=== PATIENT | female | born 1990 | race Two or more races ===

== ENCOUNTER 2016-06-17 04:56 | Emergency (ER) | payer SELFPAY ==
[2016-06-17 05:12] VITALS: BP 114/77
--- NOTE | 2016-06-17 06:12 | EDM.PDOC ---
<Ancelmo Figueroa - Last Filed: 06/17/16 06:07> ED HPI GI/ABDOMINAL - General Chief Complaint: Abdominal Pain Stated Complaint: LOWER ABD ABD PAIN Time Seen by Provider: 06/17/16 05:20 Source: Reports: Patient, Family History Limitations: Reports: Language barrier (Speaks very little Latvian) - History of Present Illness INITIAL COMMENTS - FREE TEXT/NARRATIVE: 26-year-old female with lower abdominal pain for the past 12-24 hours. No fevers or chills. She feels pressure with urination. She has not had a menstrual cycle for up to 7 or 8 months. No previous surgical history. Location: other (Pain is mostly lower abdomen, suprapubic) Quality: Reports: ache, cramping Severity: moderate Associated Symptoms (-Female): Reports: other (Amenorrhea). Denies: chest pain, bloody stools, fever/chills, nausea/vomiting - Related Data Allergies/ADRs: Allergies Allergy/AdvReac Type Severity Reaction Status Date / Time No Known Allergies Allergy Verified 06/17/16 05:10 Home Meds: Home Meds NK [No Known Home Meds] 06/17/16 [History] Past Medical History [employer] TECH[employer]ICIAN History: Reports: Spontaneous Neurological History: Reports: Headaches, chronic - Past Surgical History Female Surgical History: Reports: Other (see below) Other Female Surgeries/Procedures: irregular cycles Other Neurological Surgeries/Procedures: biopsy on back Social & Family History - Tobacco Use Smoking Status *Q: Never Smoker Second Hand Smoke Exposure: No - Caffeine Use Caffeine Use: Reports: Coffee, Soda - Recreational Drug Use Recreational Drug Use: No ED ROS GENERAL - Review of Systems Review Of Systems: See Below Constitutional: Denies: fever, chills HEENT: Reports: No symptoms Respiratory: Denies: Shortness of Breath Cardiovascular: Denies: Chest pain GI/Abdominal: Reports: Abdominal pain : Reports: urgency, other (She has a pressure with urination) Skin: Reports: no symptoms Psychiatric: Reports: No symptoms ED EXAM, GI/ABD - Physical Exam Exam: See Below Exam Limited By: No limitations General Appearance: alert, no apparent distress ( appears uncomfortable) Respiratory/Chest: no respiratory distress, lungs clear Cardiovascular: regular rate, rhythm GI/Abdominal: soft, other (She reacts with tenderness with some mild guarding across the lower abdomen, especially in the suprapubic area) Neurological: alert Psychiatric: normal affect, normal mood Skin Exam: Warm, Dry Course - Vital Signs Last Recorded V/S: Last Vital Signs Temp 99.8 F 06/17/16 05:18 Pulse 88 06/17/16 05:18 Resp 18 06/17/16 05:18 BP 114/77 06/17/16 05:18 Pulse Ox 98 06/17/16 05:18 - Orders/Labs/Meds Orders: Active Orders 24 hr Category Date Time Status OB 1st Tri Sgl 1st Gest [US] Stat Exams 06/17/16 07:24 Taken Labs: Laboratory Tests 06/17/16 06/17/16 06/17/16 Range/Units 05:28 05:28 05:48 WBC 6.1 (4.5-11.0) K/uL RBC 4.25 (3.30-5.50) M/uL Hgb 12.0 (12.0-15.0) g/dL Hct 35.5 L (36.0-48.0) % MCV 84 (80-98) fL MCH 28 (27-31) pg MCHC 34 (32-36) % Plt Count 248 (150-400) K/uL Neut % (Auto) 58 (36-66) % Lymph % (Auto) 33 (24-44) % [place] % (Auto) 8 H (2-6) % Eos % (Auto) 1 L (2-4) % Baso % (Auto) 1 (0-1) % Sodium (140-148) mmol/L Potassium (3.6-5.2) mmol/L Chloride (100-108) mmol/L Carbon Dioxide (21-32) mmol/L Anion Gap (5.0-14.0) mmol/L BUN (7-18) mg/dL Creatinine (0.6-1.0) mg/dL Est Cr Clr Drug Dosing mL/min Estimated GFR (MDRD) (>60) Glucose (74-106) mg/dL Calcium (8.5-10.1) mg/dL Total Bilirubin (0.2-1.0) mg/dL AST (15-37) U/L ALT (12-78) U/L Alkaline Phosphatase (46-116) U/L Total Protein (6.4-8.2) g/dL Albumin (3.4-5.0) g/dL Globulin (2.3-3.5) g/dL Albumin/Globulin Ratio (1.2-2.2) HCG, Quant (0-6) mIU/mL Urine Color Yellow Urine Appearance Clear Urine pH 5.0 (4.5-8.0) Ur Specific [place] 1.010 (1.008-1.030) Urine Protein Negative (NEGATIVE) mg/dL Urine Glucose (UA) Normal (NEGATIVE) mg/dL Urine Ketones Negative (NEGATIVE) mg/dL Urine Occult Blood Negative (NEGATIVE) Urine Nitrite Negative (NEGATIVE) Urine Bilirubin Negative (NEGATIVE) Urine Urobilinogen Normal (NORMAL) mg/dL Ur Leukocyte Esterase Negative (NEGATIVE) Urine RBC Not seen (0-5) Urine WBC Not seen (0-5) Ur Epithelial Cells Rare Amorphous Sediment Not seen Urine Bacteria Rare Urine Mucus Rare Urine HCG, Qual Positive H 06/17/16 06/17/16 Range/Units 05:48 06:03 WBC (4.5-11.0) K/uL RBC (3.30-5.50) M/uL Hgb (12.0-15.0) g/dL Hct (36.0-48.0) % MCV (80-98) fL MCH (27-31) pg MCHC (32-36) % Plt Count (150-400) K/uL Neut % (Auto) (36-66) % Lymph % (Auto) (24-44) % [place] % (Auto) (2-6) % Eos % (Auto) (2-4) % Baso % (Auto) (0-1) % Sodium 140 (140-148) mmol/L Potassium 3.5 L (3.6-5.2) mmol/L Chloride 106 (100-108) mmol/L Carbon Dioxide 23 (21-32) mmol/L Anion Gap 14.5 H (5.0-14.0) mmol/L BUN 10 (7-18) mg/dL Creatinine 0.5 L (0.6-1.0) mg/dL Est Cr Clr Drug Dosing 128.66 mL/min Estimated GFR (MDRD) > 60 (>60) Glucose 93 (74-106) mg/dL Calcium 8.4 L (8.5-10.1) mg/dL Total Bilirubin 0.3 (0.2-1.0) mg/dL AST 23 (15-37) U/L ALT 48 (12-78) U/L Alkaline Phosphatase 74 (46-116) U/L Total Protein 7.1 (6.4-8.2) g/dL Albumin 3.7 (3.4-5.0) g/dL Globulin 3.4 (2.3-3.5) g/dL Albumin/Globulin Ratio 1.1 L (1.2-2.2) HCG, Quant 174 H (0-6) mIU/mL Urine Color Urine Appearance Urine pH (4.5-8.0) Ur Specific [place] (1.008-1.030) Urine Protein (NEGATIVE) mg/dL Urine Glucose (UA) (NEGATIVE) mg/dL Urine Ketones (NEGATIVE) mg/dL Urine Occult Blood (NEGATIVE) Urine Nitrite (NEGATIVE) Urine Bilirubin (NEGATIVE) Urine Urobilinogen (NORMAL) mg/dL Ur Leukocyte Esterase (NEGATIVE) Urine RBC (0-5) Urine WBC (0-5) Ur Epithelial Cells Amorphous Sediment Urine Bacteria Urine Mucus Urine HCG, Qual - Re-Assessments/Exams Free Text/Narrative Re-Assessment/Exam: 06/17/16 06:10 A UA and urine was obtained which was positive. CBC and CMP were obtained. After the positive test I tried to find heart tones but found none. She does not have a palpable uterus. A quantitative beta hCG was obtained and will be followed by a pelvic ultrasound. Care was turned over to Dr. Mata at 7 AM. Departure - Departure Disposition: Home, Self-Care 01 Clinical Impression: Qualifiers: Weeks of gestation: less than 8 weeks Qualified Code(s): Z3A.01 - Less than 8 weeks gestation of Forms: ED Department Discharge Additional Instructions: Use Tylenol as needed for pain control, recommend starting vitamin, please establish with an OB provider in the next 2-3 days recommend repeating the beta-hCG, call or return to the ED with worsening symptoms <Yusuf Mata - Last Filed: 06/17/16 08:59> Departure - Departure Time of Disposition: 08:58 Condition: good - Assessment/Plan Plan: Assessment Acuity = acute Site and laterality = with right and left ovarian cysts lower pelvic pain Etiology = probable combination of ovarian cysts producing pain probable incidental Manifestations = none Location of injury = home Lab values = potassium low at 3.5 consistent with hypokalemia, beta hCG low at 174 consistent with early versus miscarriage Plan Recommend establish with OB provider in the next 2-3 days for reevaluation which would include repeat beta hCG to note trend and magnitude, Tylenol as needed for pain control recommend vitamin Patient was in agreement with the plan all questions were answered, they were instructed to return to the emergency department or call for worsening symptoms. This note was dictated using [employer] voice recognition software please call with any questions.
== END 2016-06-17 09:05 | disposition home or self-care (01) ==
LOC: JP.ED 04:56
DX: O26.891 Other specified pregnancy related conditions, first trimester (principal); R10.30 Lower abdominal pain, unspecified; Z3A.01 Less than 8 weeks gestation of pregnancy
CPT/HCPCS: 36415; 76801; 80053; 81001; 81025; 84702; 85025; 99283; 99284-25